=== PATIENT | female | born 1990 | race Caucasian/White ===

== ENCOUNTER 2017-11-04 19:30 | Emergency (ER) | payer MEDICAID ==
--- NOTE | 2017-11-04 20:15 | ER Document Report ---
ED ENT - General Chief Complaint: Sore Throat Stated Complaint: SORE THROAT Time Seen by Provider: 11/04/17 20:09 Notes: Patient is a 27-year-old healthy female presenting to the emergency department complaining of a sore throat, painful swallowing, and fever 1 day. Patient does have chills and body aches. All of the symptoms were acute onset this morning. Patient has no known sick contacts. TRAVEL OUTSIDE OF THE [place] IN LAST 30 DAYS: No - HPI Onset: This morning Onset/Duration: Sudden Location of pain: Throat Associated symptoms: Chills, Fever, Headache, Swollen glands Similar symptoms previously: No Recently seen / treated by doctor: No - Related Data Allergies/Adverse Reactions: amoxicillin [From Augmentin] Adverse Reaction (Verified 11/04/17 20:18) clavulanic acid [From Augmentin] Adverse Reaction (Verified 11/04/17 20:18) Past Medical History - General Information source: Patient - Social History Smoking Status: Current Every Day Smoker Frequency of alcohol use: None Drug Abuse: None Lives with: Family Family History: Reviewed & Not Pertinent Patient has suicidal ideation: No Patient has homicidal ideation: No - Medical History Medical History: Negative Renal/ Medical History: Denies: Hx Peritoneal Dialysis Review of Systems - Review of Systems Constitutional: See HPI EENT: See HPI Cardiovascular: No symptoms reported Respiratory: No symptoms reported Gastrointestinal: No symptoms reported Genitourinary: No symptoms reported Female Genitourinary: No symptoms reported Musculoskeletal: No symptoms reported Skin: No symptoms reported Hematologic/Lymphatic: No symptoms reported Neurological/Psychological: No symptoms reported Physical Exam - Vital signs Vitals: Temp Pulse Resp BP Pulse Ox 100.0 F 110 H 16 117/98 H 100 11/04/17 19:33 11/04/17 19:33 11/04/17 19:33 11/04/17 19:33 11/04/17 19:33 Interpretation: Normal - General General appearance: Appears well, Alert In distress: None - HEENT Head: Normocephalic, Atraumatic Eyes: Normal Conjunctiva: Normal Pupils: PERRL Tympanic membrane: Normal Mucous membranes: Moist Pharynx: Erythema, Uvular edema. No: Retropharyngeal abscess, Tonsillar hypertrophy, Potential airway comprom. - No trismus or drooling. No signs of Dada's angina. Neck: Lymphadenopathy - Positive tonsillar adenopathy, Supple. No: Meningismus - Respiratory Respiratory status: No respiratory distress Chest status: Nontender Breath sounds: Normal Chest palpation: Normal - Cardiovascular Rhythm: Regular Heart sounds: Normal auscultation Murmur: No - Abdominal Inspection: Normal Distension: No distension Bowel sounds: Normal Tenderness: Nontender Organomegaly: No organomegaly - Back Back: Normal, Nontender - Extremities General upper extremity: Normal inspection, Nontender, Normal color, Normal ROM , Normal temperature General lower extremity: Normal inspection, Nontender, Normal color, Normal ROM , Normal temperature, Normal weight bearing. No: Francesca's sign - Neurological Neuro grossly intact: Yes Cognition: Normal Orientation: AAOx4 [place] Coma Scale Eye Opening: Spontaneous Arya Coma Scale Verbal: Oriented Arya Coma Scale Motor: Obeys Commands Arya Coma Scale Total: 15 Speech: Normal Motor strength normal: LUE, RUE, LLE, RLE Sensory: Normal - Psychological Associated symptoms: Normal affect, Normal mood - Skin Skin Temperature: Warm Skin Moisture: Dry Skin Color: Normal Course - Re-evaluation Re-evalutation: 11/04/17 20:44 History and physical are consistent with a viral illness. There are no signs of sepsis or dehydration. No signs of Dada's angina, peritonsillar abscess. No difficulty talking or swallowing. I will prescribe a short course of oral steroids to help with the lymphadenopathy. Home care, primary care follow-up in ED return precautions were discussed with patient. Patient is agreeable with plan and stable for discharge - Vital Signs Vital signs: Temp Pulse Resp BP Pulse Ox 100.0 F 110 H 16 117/98 H 100 11/04/17 19:33 11/04/17 19:33 11/04/17 19:33 11/04/17 19:33 11/04/17 19:33 Discharge - Discharge Clinical Impression: Sore throat (viral) Condition: Stable Disposition: HOME, SELF-CARE Instructions: Acetaminophen, Fever ([facility]), Sore Throat ([facility]), Viral Syndrome ( [facility]), Steroid Medication Additional Instructions: Your rapid strep was negative today. Throat culture is pending. We will call you with those results if any change in treatment is needed I am prescribing a short course of oral steroids to help with the soft tissue swelling in the lymph nodes Fever control with Tylenol Lozenges and salt water gargles for comfort Please follow-up with your primary care if the symptoms persist Return to the emergency department for any worsening of your symptoms Prescriptions: Prednisone [Deltasone 10 mg Tablet] 20 mg PO BID #12 tablet
[2017-11-04] MEDS ORDERED: ACETAMINOPHEN SOLN 325 MG/10.15 ML UDCUP PO ONE (20:40)
[2017-11-04] MEDS ORDERED: PREDNISONE 20 MG TABLET PO ONE (20:42)
[2017-11-04 21:20] VITALS: BP 128/82
== END 2017-11-04 21:20 | disposition home or self-care (01) ==
LOC: ER 19:30
DX: J02.9 Acute pharyngitis, unspecified (principal); R13.10 Dysphagia, unspecified; R50.9 Fever, unspecified; M79.1 Myalgia; R51 Headache; R59.9 Enlarged lymph nodes, unspecified; F17.200 Nicotine dependence, unspecified, uncomplicated
CPT/HCPCS: 99283; 87070; 87880; J7512; J3490